=== PATIENT | female | born 1995 | race Caucasian/White ===

== ENCOUNTER 2025-04-13 | Emergency (ER) | payer MEDICAID ==
[~2025-04-13] VITALS: Ht 160 cm; Wt 48.1 kg
--- NOTE | 2025-04-13 01:36 | Physician Documentation ---
History of Present Illness General Chief Complaint: Ear Pain Stated Complaint: EAR PAIN Time Seen by MD: 01:35 History of Present Illness Initial Comments The patient is a 29-year-old female complains of some right ear pain that has been going on for last 4-5 days. Patient states she had same problem previously and it was due to ear wax. The patient was seen at urgent care and they stated they could see her TM secondary to ear wax the patient presented tonight has a same complaint. The patient has no fevers or chills the patient's symptoms are mild and persistent. Medication Reconciliation Allergies: Coded Allergies: No Known Allergies (Unverified , 02/25/15) Past Medical History Past Medical History: No Pertinent History Past Surgical History: no surgical history Alcohol Use: None Drug Use: none Lives In: Home Review of Systems All Other Systems at this time: Reviewed and Negative Physical Exam Physical Exam Vital Signs: Temperature: 98.4, Source: Temporal, Heart Rate: 76, Respiratory Rate: 16, BP: 112/65, Pulse Oximetry: 97, Weight: 48.100 Physical Exam VITALS: Reviewed and as above. GENERAL: Alert, no apparent distress. HEENT: Normocephalic, atraumatic, PERRL, EOMI, dry mucosa, no erythema right external canal has cerumen impacted near the tympanic membrane MUSCULOSKELETAL: No deformities, no edema SKIN: Warm and dry, no rash NEURO: Oriented x4, No motor or sensory deficit PSYCH: Normal mood and affect, no agitation Progress Results/Orders Results/Orders Vital Signs 04/13/25 04/13/25 00:42 03:05 Temp 98.4 98.6 Pulse 76 74 Resp 16 18 B/P (MAP) 112/65 111/62 Pulse Ox 97 99 Medical Decision Making Additional information obtaine: family Findings The patient had her right TM copiously irrigated with warm saline with removal of the large amount of wax and the TM was clear after irrigation. Prior hospitalizations were reviewed. The patient's pulse oximetry was interpreted as normal and adequate. Differential Diagnosis Otitis externa otitis media cerumen impaction Departure Time of Disposition: 02:57 Disposition: 01 HOME / SELF CARE / HOMELESS Impression: Primary Impression: Cerumen impaction Qualified Codes: H61.21 - Impacted cerumen, right ear Discharge Instructions: Earache, Adult Referrals: NO PRIMARY CARE PROVIDER (PCP) Signature Scribe Signature: No scribe Attestation: The note accurately reflects work and decisions made by me.Ayah Ohara MD 04/13/25 04:24 AYAH OHARA MD Apr 13, 2025 01:35
[2025-04-13 03:05] VITALS: BP 111/62; PULSE 74; RESP 18; TEMP 98.6; O2SAT 99
== END 2025-04-13 03:06 | disposition home or self-care (01) ==
LOC: ER 00:01
DX: H61.21 Impacted cerumen, right ear (principal)
CPT/HCPCS: 69209; 99282